=== PATIENT | male | born 1955 | race Caucasian/White ===

== ENCOUNTER 2022-10-15 12:48 | Outpatient (OUT) | payer MEDICARE, OTHER, SELFPAY ==
--- NOTE | 2022-10-15 13:50 | PM.PRESUREVA ---
History of Present Illness History of Present Illness Chief complaint: BPH with Obstruction, Bladder Stone Narrative: Patient presents for preadmission testing. The patient states he had an elevated PSA, and a history of kidney stones, he states he had a follow-up for kidney stones and it was determined that he had a bladder stone, and also had a prostate biopsy done. The patient reports difficulty starting the stream of urine especially in the morning. He denies dysuria, hematuria, abdominal pain, fever, nausea, vomiting, or any other complaints. Review of Systems ROS Narrative REVIEW OF SYSTEMS: Negative except as stated in HPI, ten or more systems reviewed. Constitutional: No fever , chills, weakness ENT: No sore throat or epistaxis Cardiovascular: No edema, chest pain, palpitations, or activity intolerance Respiratory: No shortness of breath, cough, or wheezing Musculoskeletal: No joint pain or swelling Gastrointestinal: No abdominal pain, constipation, diarrhea, or vomiting Neurological: No numbness, tingling, weakness, or headache Psychiatric: No mood changes PFSH PFSH Medical History (Updated 10/15/22 @ 13:29 by Karena Hernández NP) Surgical History (Updated 10/15/22 @ 13:29 by Karena Hernández NP) Family History (Updated 10/15/22 @ 13:29 by Karena Hernández NP) Other Family history of breast cancer Family history of colon cancer Social History (Updated 10/15/22 @ 13:25 by Karena Hernández NP) Within the past year, how often did you have a drink containing alcohol: never Score interpretation: A score less than 4 is consistent with normal alcohol consumption. 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 Highest level of school completed/degree received: high school graduate Meds Home Medications and Allergies Home Medications Medication Instructions Recorded Confirmed Type amlodipine 10 mg tablet (Norvasc) 10 mg PO DAILY 10/15/22 10/15/22 History aspirin 81 mg tablet,delayed 81 mg PO DAILY 10/15/22 10/15/22 History release (Adult Aspirin Regimen) docosahexaenoic acid (dha)-epa 1 cap PO DAILY 10/15/22 10/15/22 History capsule fluticasone propionate 50 2 spray intranasal DAILY PRN 10/15/22 10/15/22 History mcg/actuation nasal allergy symptoms spray,suspension (24 Hour Allergy Relief) omeprazole 40 mg capsule,delayed 40 mg PO DAILY 10/15/22 10/15/22 History release potassium 99 mg tablet mg 10/15/22 History tamsulosin 0.4 mg capsule (Flomax) 0.4 mg PO DAILY 10/15/22 10/15/22 History Allergies Allergy/AdvReac Type Severity Reaction Status Date / Time acetaminophen [From [place]] Allergy shortness Verified 10/15/22 13:20 of breath hydrocodone [From [place]] Allergy shortness Verified 10/15/22 13:20 of breath lidocaine Allergy Unknown Verified 10/15/22 13:20 oxycodone [From Percocet] Allergy Unknown Verified 10/15/22 13:20 Exam Narrative Exam Narrative: Constitutional: Awake, alert, comfortable, well-appearing, nontoxic, interactive, vital signs as charted Head: Normocephalic, atraumatic Neck: Supple, normal appearance, normal range of motion, no meningeal signs, no lymphadenopathy Respiratory: No respiratory distress, breath sounds clear Cardiovascular: Regular rate and rhythm, strong and regular heart tones Abdomen: Nontender, normal bowel sounds, soft, no CVA tenderness Musculoskeletal: Normal gait, no swelling or edema Skin: No rashes or induration, no lesions, only visible skin inspected Neuro: No neurological deficits, normal sensation Psychiatric: Oriented ?3, normal affect Assessment and Plan Assessment and Plan (1) Bladder stone: (2) BPH with obstruction/lower urinary tract symptoms: (3) Elevated PSA: Plan Cystoscopy, transurethral resection of the prostate, shock pulse of bladder stone scheduled with Dr. Noriega 10/18/2022.
[2022-10-15 14:32] LABS: Basophils Percent Auto 0.3 % (0.2-2.0); Eosinophils Absolute Auto 0.2 10^3/uL (0.0-0.7); Eosinophils Percent Auto 2.8 % (0.9-7.0); Hematocrit 42.9 % (42.0-54.0); Hemoglobin 14.7 g/dL (14.0-18.0); Immature Granulocytes Abs Auto 0.02 10^3/uL (0.00-0.03); Immature Granulocytes Pct Auto 0.3 % (0.0-0.5); Mean Corpuscular HGB Conc 34.3 g/dL (29.9-35.2); Mean Corpuscular Hemoglobin 29.7 pg (25.9-34.0); Mean Corpuscular Volume 86.7 fL (80.0-94.0); Mean Platelet Volume 9.8 fL (9.5-13.5); Monocytes Absolute Auto 0.5 10^3/uL (0.3-0.8); Monocytes Percent Auto 8.6 % (1.7-12.0); Platelet Count 259 10^3/uL (150-450); Red Blood Count 4.95 10^6/uL (4.70-6.10); Red Cell Distribution Width 12.6 % (11.0-15.0); White Blood Count 5.7 10^3/uL (4.0-11.0)
[2022-10-15 14:42] LABS: INR 0.98; Partial Thromboplastin Time 25.9 sec (22.3-36.2); Prothrombin Time 10.4 sec (9.0-11.6)
[2022-10-15 15:19] LABS: Anion Gap 13.1; BUN Creatinine Ratio 11.9; Calcium 8.7 mg/dL (8.5-10.1); Carbon Dioxide 27.1 mmol/L (21.0-32.0); Chloride 106 mmol/L (98-107); Estimated GFR (African America >60 (>=60); Estimated GFR (Non-African Ame >60 (>=60); Glucose 95 mg/dL (74-106); Potassium 4.2 mmol/L (3.5-5.1); Sodium 142 mmol/L (136-145)
== END 2022-10-15 12:49 | disposition home or self-care (01) ==
LOC: PST 12:55
PROVIDERS: PCP Family Medicine; Visit Provider Urology
DX: Z01.812 Encounter for preprocedural laboratory examination (principal); Z01.818 Encounter for other preprocedural examination; N40.1 Benign prostatic hyperplasia with lower urinary tract symptoms; N13.8 Other obstructive and reflux uropathy; R31.9 Hematuria, unspecified; R97.20 Elevated prostate specific antigen [PSA]; N20.0 Calculus of kidney; I10 Essential (primary) hypertension; Z79.01 Long term (current) use of anticoagulants
CPT/HCPCS: 36415; 80048; 85025; 85610; 85730; G0463

== ENCOUNTER 2022-10-18 09:38 | Day surgery (SDC) | payer MEDICARE, OTHER, SELFPAY ==
[2022-10-15 13:25] VITALS: BP 142/75; PULSE 63; RESP 16; TEMP 36.2; O2SAT 97; BMI 26.5
[2022-10-18] VITALS (12 sets, daily range): BP systolic 123–164; BP diastolic 63–84; PULSE 58–70; RESP 16–18; TEMP 36.1–36.3; O2SAT 92–97; BMI 26.3; BMI 28.2
[2022-10-18] MEDS: LACTATED RINGER'S SOLUTION 1,000 ML 50 ML IV (10:15)
[2022-10-18] MEDS: LEVOFLOXACIN IN DEXTROSE 5 % 500 MG/100 ML PIGGYBACK 100 MG IV (11:55)
--- NOTE | 2022-10-18 14:06 | P.URON_ITS ---
Urology Surgery Operative Note Operative Note Procedure Date: 10/18/22 Time Out Performed: yes Pre-op Diagnosis: #1. Benign prostatic hypertrophy with L UTS refractory to medications. #2. Bladder calculi Post-op Diagnosis: same Procedures performed: #1. Cystoscopy. #2. Transurethral resection of the prostate. #3. Cystolitholapaxy of multiple bladder calculi. #3. Urethral dilation with Walter sounds to 28 [place]. Anesthesia: GETA Primary Surgeon: Ishmael Noriega Complications: none Estimated blood loss (mL): 15 Findings: tightly coapting lateral lobes especially at the apex distal to the veru. urethral meatal stenosis Specimens: #1. Prostate chips. #2. bladder calculi pieces Drains: 22 [place] three-way coud? Avalos catheter to the bladder and CBI Indications for Procedures: this gentleman has benign prostatic hypertrophy with L UTS that is refractory to medications. Endoscopically he was found to have bladder calculi. He also was obstructed in the trilobar fashion. He was desirous for transurethral resection of the prostate. He signed an informed consent for transurethral resection of the prostate and cystolitholapaxy after all of the risks were explained to him. Some of these risks include bleeding, infection, anesthesia, urinary incontinence both temporary and permanent, bladder perforation, and were further operations just to name a few Detailed description of Procedure: The patient was brought to the operating room and placed on the operating room table in the supine position. SCDs were placed on the lower extremities and turned on and functioning during the entire case. Timeout was done by all parties in the room. We all agreed upon the patient's identification and the planned procedures for this patient. Genn. anesthesia was then administered. The patient was then repositioned into the modified dorsal lithotomy position. All pressure points were satisfactorily padded. Genitalia were sterilely prepped and draped in usual fashion.I started by attempting to pass a 26 [place] sector scope with the standard bipolar loop electrode but was unable due to meatal stenosis. I then had to use Walter sounds and dilated his urethral meatus up to 28 [place]. I then was able to pass the resectoscope with the visual obturator through the urethra and into the bladder. The obturator was removed. I then passed the loop with the resectoscope. I elected to do the prostate portion 1st. The ureteral orifices were marked with the loop electrode. I then resected the large median lobe down to the bladder neck level. I then resected posteriorly from the bladder neck to the veru level. The very capacious left lateral lobe was then resected from the bladder neck to the veru level. This lateral lobe was coapting onto the right lateral lobe. Both lateral lobes protruded distally to the veru and were coapting there. This created a very tight obstruction distal to the veru. I then resected the right lateral lobe in a similar manner. The apex was then opened up carefully and the tight coapting was relieved. I had to relieve the tight coapting. The rollerball electrode was used to coagulate the resection bed. The anterior tissue was then taken down in a similar fashion. Once I had coagulated all of the resection bed I had wide open prostate and no bleeding. The ellick evacuator was used a few times to get all of the prostate chips out and these were sent for permanent sections. We also were able to remove the smaller bladder stones and these were sent separately labeled bladder calculi. At this time I then removed the resectoscope and then passed a nephroscope into the bladder. I then passed the shock pulse device through the scope and made contact with the stones. I then began doing lithotripsy of the bladder calculi with the shock pulse. Once all of the large pieces were removed from the bladder I then removed the nephroscope and then repassed the resectoscope into the bladder. I then used the ellick evacuator to get all the remaining small pieces out of the bladder. Upon completion the bladder was without any bladder stones or prostate chips. I then reevaluated the resection bed. There was no need for any further coagulation. The prostate and bladder neck were wide open. Scope was then removed. I then passed a 22 [place] three-way coud? Avalos catheter into the bladder. It was manually irrigated to verify placement. I then passed 30 mL of fluid in the balloon. It was taped to traction and CBI was started. It irrigated to pink. He was then transferred to a [place] bed and wheeled to PACU in stable condition after being extubated.
--- NOTE | 2022-10-18 14:27 | PC.NURSE ---
PINK TINGED URINE NO BLOOD CLOTS
[2022-10-18] MEDS: CEFAZOLIN SODIUM/DEXTROSE,ISO 1 GM/50 ML IV.SOLN IV ×2 (15:52→19:32)
[2022-10-18] MEDS: SOLIFENACIN SUCCINATE 10 MG TABLET PO (16:04)
[2022-10-18] MEDS: 0.9 % SODIUM CHLORIDE 1,000 ML 80 ML IV (16:05)
[2022-10-18] MEDS: KETOROLAC TROMETHAMINE 10 MG TABLET PO (19:35)
--- NOTE | 2022-10-18 21:11 | PC.NURSE ---
clear no clots
[2022-10-19] MEDS: 0.9 % SODIUM CHLORIDE 1,000 ML 80 ML IV (04:01)
[2022-10-19 04:27] VITALS: O2SAT 93
--- NOTE | 2022-10-19 05:01 | PC.NURSE ---
traction released patient tolerated well. CBI irrigation titrated down
[2022-10-19 05:27] VITALS: BP 127/68; PULSE 61; RESP 18; TEMP 36.5; O2SAT 93
--- NOTE | 2022-10-19 06:09 | PC.NURSE ---
0600 CBI turned off. Patient educated on after care and no s/s of a UTI. Patient was shown how to place leg bag on properly and do proper care of both bags. After education was completed patient ambulated in hallway then up in chair.
[2022-10-19] MEDS: AMLODIPINE BESYLATE 5 MG TABLET 10 MG PO (08:08)
[2022-10-19] MEDS: OMEPRAZOLE 40 MG CAPSULE.DR PO (08:09)
[2022-10-19] MEDS: SOLIFENACIN SUCCINATE 10 MG TABLET PO (08:15)
[2022-10-24 19:12] LABS: Calcium Oxalate Dihydrate 20 % (.); Calcium Oxalate Monohydrate 80 % (.); Size 6x5 mm (.)
== END 2022-10-19 09:20 | disposition home or self-care (01) ==
LOC: SURGOUT 14:00 → MS 14:55
PROVIDERS: PCP Family Medicine; Visit Provider Urology
PROC: (CPT 52317; principal; 2022-10-18 10:40)
DX: N40.1 Benign prostatic hyperplasia with lower urinary tract symptoms (principal); N21.0 Calculus in bladder; R31.9 Hematuria, unspecified; R97.20 Elevated prostate specific antigen [PSA]; Z87.442 Personal history of urinary calculi; I10 Essential (primary) hypertension; Z79.01 Long term (current) use of anticoagulants; N35.911 Unspecified urethral stricture, male, meatal; Z87.891 Personal history of nicotine dependence; Z79.82 Long term (current) use of aspirin; R33.9 Retention of urine, unspecified
CPT/HCPCS: 52317; 52601; 82365; 88305; 88344; 94761; 99999; J2704